=== PATIENT | male | born 2000 | race Two or more races ===

== ENCOUNTER 2022-04-04 12:48 | Outpatient (CLI) | payer OTHER | END 2022-04-04 13:07 | disposition home or self-care (01) | LOC: RAD 12:48 | PROVIDERS: ATTEND Internal Medicine Hematology & Oncology | DX: S63.001A Unspecified subluxation of right wrist and hand, initial encounter (principal) ==

== ENCOUNTER → 2024-12-08 | Outpatient (CLI) | payer OTHER | END | disposition home or self-care (01) | LOC: RAD 15:24 | PROVIDERS: ATTEND Internal Medicine Hematology & Oncology | DX: R51.9 Headache, unspecified (principal) ==